=== PATIENT | female | born 1990 | race Caucasian/White ===

== ENCOUNTER 2024-07-01 21:38 | Inpatient (IN) | payer MEDICAID, SELFPAY ==
[2024-07-01] VITALS (7 sets, daily range): BP systolic 173–224; BP diastolic 98–148; PULSE 88–113; RESP 18–26; TEMP 36.7–36.8; O2SAT 86–92; BMI 33.8
--- NOTE | 2024-07-01 22:08 | EKG12_ITS ---
Test Reason : SOB Blood Pressure : */* mmHG Vent. Rate : 90 BPM Atrial Rate : 90 BPM P-R Int : 128 ms QRS Dur : 96 ms QT Int : 414 ms P-R-T Axes : 61 2 96 degrees QTcB Int : 506 ms Normal sinus rhythm Possible Left atrial enlargement Left ventricular hypertrophy with repolarization abnormality ( Sokolow-Avila , Luis product ) Abnormal ECG Confirmed by ZACH GAMA, DOMENICO ([id number]), news editor ORTEGA SANCHEZ ([id number]) on 07/08/2024 12:39:17 PM Referred By: SAMANTHA Confirmed By: DOMENICO SERRANO MD
[2024-07-01] MEDS: 0.9% Normal Saline (1000mL) 1,000 ML 999 ML IV (22:17)
[2024-07-01] MEDS: Albuterol 2.5 MG/3 ML VIAL.NEB. INHALATION (22:18)
[2024-07-01] MEDS: Ipratropium/Albuterol Sulfate 3 ML AMPUL.NEB INHALATION (22:18)
--- NOTE | 2024-07-01 22:20 | ED.VIS.DYS ---
HPI History of Present Illness Chief Complaint: Shortness of Breath Narrative Narrative: Chief complaint and HPI: Shortness of breath and cold symptoms. 34-year-old female with past medical history of HTN and methamphetamine abuse presents for evaluation of shortness of breath and cold symptoms. Patient states that she has been sober for approximately 30 days. She states that she recently started paying more attention to her health in which she has noticed that her blood pressure has been high over the past several weeks. She states that she was recently admitted to [facility] for hypertension and pneumonia. States she was treated with antibiotics. Patient states that her symptoms improved however the past week she has developed nasal congestion and productive cough. She states that [facility] today and her blood pressure was high. They are currently trying to adjust her medication. She states she was started on a Z-Donavon today. She states this evening her shortness of breath increased with chest tightness which is why she presents. She denies any fever, chills, headache, abdominal pain, nausea, vomiting, diarrhea. Review of systems: See HPI Medications: As listed on the chart Allergies: As listed on the chart PFSH: Per chart Vital signs: As listed on the chart. Reviewed. Physical exam: Gen: A&O x3 Head: Normocephalic, atraumatic Eyes: No sclera icterus, conjunctiva clear, PERRL. EOMI ENT: Mildly dry mucous membranes, + nasal congestion Neck: Trachea midline, No JVD CV: Tachycardic, regular rhythm, no murmurs, no peripheral edema Resp: Lungs CTA BL with few scattered expiratory wheezing, tachypnea, on 2 L nasal cannula GI: Abd soft, non-distended, non-tender, no r/r/g Musc: Full ROM, no deformity Skin: Warm, dry Neuro: Alert, oriented, grossly intact, sensation intact Psych: Cooperative, appropriate mood and affect [facility] Medical History Smoker Methamphetamine use Hypertension Home Medications ?Medication ?Instructions ?Recorded ?Last Taken ?Type carvedilol 3 tab PO DAILY 07/01/24 Unknown History Allergy/AdvReac Type Severity Reaction Status Date / Time No Known Allergies Allergy Verified 07/01/24 21:39 Social History Smoking Status: Current every day smoker tobacco type: cigarettes EXAM Physical Exam Const Vital Signs: 07/01/24 21:40 07/01/24 21:40 07/01/24 21:42 Temperature 98.1 F 98.1 F Temperature Source Oral Oral Pulse Rate 113 H 109 H Respiratory Rate 26 H 24 H Respiratory Effort Respiratory Depth Respiratory Pattern Blood Pressure 224/148 H 224/148 H Blood Pressure Mean 173 173 Pulse Ox 86 91 90 Oxygen Delivery Method Room Air Nasal Cannula Nasal Cannula Oxygen Flow Rate (L/min) 2 2 07/01/24 21:42 07/01/24 22:18 07/01/24 22:35 Temperature Temperature Source Pulse Rate 88 Respiratory Rate 20 H Respiratory Effort Short of Breath Labored Accessory Muscle Use Respiratory Depth Shallow Respiratory Pattern Tachypnea Normal Blood Pressure Blood Pressure Mean Pulse Ox 90 Oxygen Delivery Method Nasal Cannula Room Air Oxygen Flow Rate (L/min) 2 07/01/24 22:55 07/01/24 23:15 Temperature 98.3 F Temperature Source Oral Pulse Rate 94 Respiratory Rate 18 Respiratory Effort Respiratory Depth Respiratory Pattern Blood Pressure 207/139 H 173/98 H Blood Pressure Mean 161 123 Pulse Ox 91 Oxygen Delivery Method Room Air Oxygen Flow Rate (L/min) MDM MDM MDM Narrative Medical decision making narrative: 34-year-old female with past medical history of HTN and methamphetamine abuse presents for evaluation of shortness of breath and cold symptoms. Associated symptom is uncontrolled hypertension. Patient started on a Z-Donavon today by PCP. On presentation, patient is hypertensive, tachycardic, tachypneic. On presentation and prior to me assessing the patient, patient was hypoxic on room air requiring nasal cannula. In the room she is 96-98% on 2 L. Will trial her off oxygen to assess if hypoxia was accurate. Differential diagnosis includes but not limited to COVID, influenza, pneumonia, hypertension urgency, hypertensive emergency, suspect less likely ACS or PE however in the differential. NS bolus, labetalol, breathing treatments ordered for symptoms. Respiratory/cardiac workup ordered. On reevaluation after breathing treatments, patient's shortness of breath and tachypnea has improved. She has remained on room air without hypoxia. She did ambulate with a pulse ox without hypoxia as well. Her SBP is still in the 200s despite 20 mg IV labetalol therefore 20 mg IV hydralazine ordered. Patient's blood pressure improved to 173/98. Will not drop blood pressure further. CBC with leukocytosis at 15.4. Patient has anemia with hemoglobin 11.7. BMP shows BUN of 36 and creatinine of 2.39. Her troponin is 45. Her BNP is 48,913. I do not have previous laboratory results in my computer therefore patient was clinic synced. She was actually seen at [facility], not at [facility]. She was admitted for hypertension and JACKIE secondary to renal hypoperfusion. The note from 06/08 shows that the patient was stable to discharge with a creatinine of 2.79 and a BUN of 39. The note stated that the patient may not have full resolution of her kidney function until 90 days. She is supposed to be on Procardia XL 60 mg daily, Coreg 37.5 mg twice daily, Indur 15 mg, hydralazine 75 mg 3 times daily. Patient currently only is on the Coreg she states that the pharmacy did not have the other medications. This is likely secondary to why her hypertension is uncontrolled. On chart review her BNP is up from [facility] Discharge from 06/08 at [id number]. There was not a previous troponin to compare to. Concern is for hypertension emergency. Her D-dimer is elevated at 2.44. However given her renal insufficiency, I am able to give contrast to perform CTA chest to assess for PE. Patient will likely need a talk V/Q study. COVID, flu, RSV negative. Patient will warrant admission. I spoke with Dr. Gaxiola, she accepted admission. EKG: Interpreted by me/EM physician: EKG shows normal sinus rhythm. Left ventricular hypertrophy. Heart rate 90. No acute ischemic changes Diagnostic: Interpreted by me/EM physician: Chest x-ray without consolidation, effusion, pneumothorax. Patient has cardiomegaly. She has interstitial increased markings, concern for viral pathology. Impression: 1. Hypertension emergency 2. Viral syndrome 3. Elevated BNP, concern for heart failure 4. Elevated D-dimer, concern for PE 5. Renal insufficiency with recent JACKIE Lab Data Labs: Laboratory Results - last 24 hr 07/01/24 22:17 WBC 15.4 H RBC 3.96 L Hgb 11.1 L Hct 33.2 L MCV 83.8 MCH 28.0 MCHC 33.4 RDW Std Deviation 43.6 RDW Coeff of Rae 14.4 Plt Count 349 MPV 10.4 Immature Gran % (Auto) 0.600 Neut % (Auto) 75.1 H Lymph % (Auto) 18.6 L [place] % (Auto) 3.7 Eos % (Auto) 1.4 Baso % (Auto) 0.6 Absolute Neuts (auto) 11.5 H Absolute Lymphs (auto) 2.86 Nucleated RBC % 0 D-Dimer Quant (PE/DVT) 2.44 H* Sodium 137 Potassium 3.4 Chloride 101 Carbon Dioxide 20.3 L Anion Gap 15 BUN 36 H Creatinine 2.39 H Estim Creat Clear Calc 30.49 L Est GFR (MDRD) Non-Af 26 L BUN/Creatinine Ratio 14.9 Glucose 122 H Lactic Acid 1.1 Calcium 8.9 Troponin T High Sens 45 [place] [address] H Radiography Diagnostic Testing: Clinical Impression(s) from Imaging Studies Chest X-Ray 07/01/24 22:40 IMPRESSION: Findings suggestive of viral infection. Reading Location: [facility] Discharge Plan Triage Chief Complaint: Shortness of Breath ED Provider: Favian Owusu Dx/Rx/DC Orders Prescriptions: No Action carvedilol [Coreg] 3 tab PO DAILY Primary Care Provider: Care Physician,No Primary Referrals: Care Physician,No Primary [Primary Care Provider] - Print Language: Niuean
[2024-07-01 22:36] LABS: Absolute Lymphocyte Count 2.86 X10^3/uL (0.83-4.51); Absolute Neutrophil Count 11.5 X10^3/uL (2.0-7.7); Basophil# 0.09 X10^3/uL; Basophil% 0.6 % (0-1); Eosinophil# 0.22 X10^3/uL; Eosinophils% 1.4 % (0-5); Hematocrit 33.2 % (37-47); Hemoglobin 11.1 g/dL (12.0-15.0); Lymphocyte # 2.86 X10^3/ul (0.83-4.51); Lymphocyte % 18.6 % (19-41); Mean Corp Hgb Conc 33.4 g/dL (32-36); Mean Corpuscular Volume 83.8 fL (81-99); Mean Platelet Vol. 10.4 fl (6.2-12.0); Monocyte# 0.57 X10^3/uL; Monocyte% 3.7 % (0-10); NRBC Flagged by Analyzer 0 % (0-5); Neutrophil # 11.54 X10^3/uL (2.7-7.7); Neutrophil % 75.1 % (47-70); Platelet Count 349 K/mm3 (150-450); RBC Distribution Width CV 14.4 % (11.6-14.6); RBC Distribution Width SD 43.6 fl (35.1-43.9); Red Blood Count 3.96 M/mm3 (4.2-5.4); White Blood Count 15.4 K/mm3 (4.4-11.0)
--- NOTE | 2024-07-01 22:40 | RAD_ITS ---
PROCEDURE: CHEST PA AND LATERAL 07/01/2024 REASON FOR EXAM: SHORTNESS OF BREATH TECHNIQUE: Frontal and lateral views of the chest. COMPARISON: None FINDINGS: Hardware: None Heart: Mild cardiomegaly. Mediastinum: The mediastinal contour is unremarkable. Lungs: Bilateral interstitial thickening in the mid to lower lung zones. No pneumothorax. No pleural effusion. Bones: The bones are unremarkable. RAD/Chest PA and Lateral IMPRESSION: Findings suggestive of viral infection. Reading [facility]
[2024-07-01] MEDS: hydrALAZINE 20 MG/ML Vial IV (22:54)
[2024-07-01 22:58] LABS: Anion Gap 15 (5-15); BUN 36 mg/dL (4-19); BUN/Creat Ratio 14.9 RATIO (10-20); Calcium,Total 8.9 mg/dL (7.6-11.0); Carbon Dioxide 20.3 mmol/L (21.0-32.0); Chloride 101 mmol/L (98-108); Creatinine, Serum 2.39 mg/dL (0.70-1.20); EST Glomerular Filtration Rate 26 (>60); Estimated Creatinine Clearance 30.49 ml/min (50-250); Glucose 122 mg/dL (70-99); Lactic Acid 1.1 mmol/L (0.0-2.0); Potassium 3.4 mmol/L (3.3-5.1); Sodium Level 137 mmol/L (133-145)
[2024-07-01 23:13] LABS: Troponin T High Sensitivity 45 ng/L (<=14)
[2024-07-01 23:21] LABS: D-Dimer Quantitative (DVT/PE) 2.44 FEU/ug/m (0.27-0.49)
[2024-07-01 23:24] LABS: Pro- Brain NATRIURETIC PEPTIDE 48913 pg/mL (<=450)
--- NOTE | 2024-07-01 23:52 | PCM.HP.STD ---
HPI - General General Date of Admission: 07/01/24 Date of Service: 07/01/24 Chief Complaint: Dyspnea, cough, URI sxs, worsening. HPI Narrative The patient is a 34 y/o F w/ PMHx: HTN, Tobacco use, Polysubstance abuse (methamphetamine reporting that she has been clean x 30 days) who [facility] with history of URI type symptoms with significant congestion, rhinorrhea, dyspnea, productive cough with yellow/green sputum, congestion with reported clean status for approximately 30 days recently noting more issues with her blood pressure which been high over the last several weeks with recent [facility] admission with noted pneumonia at that time and elevated blood pressures treated with IV antibiotics with clinical improvement of her symptoms however the last week she developed nasal congestion, productive cough which then progressed to dyspnea and has been worsening with evaluation in the valve clinic on day of presentation with Z-Donavon initiation however given ongoing worsening symptoms and now onset of chest tightness prompted ED evaluation to be cautious. She denies any associated fevers or chills with her current presentation. Workup in the ED included T98.1, heart rate 113, BP initially 224/148, respiratory rate 26, 86% on room air with transient improvement to 91% on 2 L nasal cannula with most recent repeat vitals T98.3, heart rate 94, BP 173/98, respiratory rate 18, 91% on room air, CBC with WBC 15.4, hemoglobin 0.1, MCV 83.8, platelets 349 with left shift, D-dimer 2.44, BMP with carbon oxide 20.3, BUN/creatinine 36/2.39, GFR 26, glucose 122, lactic acid 1.1, initial troponin 45, NT proBNP 42166, chest x-ray with bilateral interstitial thickening in the mid to lower lung zones, rapid SARS COVID/influenza/RSV PCR negative, EKG with SR without acute evidence of ischemia. In the ED patient is started 1 L normal saline, DuoNeb and albuterol therapies, hydralazine 20 mg IV x 1, labetalol 20 mg IV x 1. [facility] Medical History Obesity Polysubstance abuse Tobacco use Methamphetamine use Hypertension Home Medications ?Medication ?Instructions ?Recorded ?Last Taken ?Type carvedilol 3 tab PO DAILY 07/01/24 Unknown History Allergy/AdvReac Type Severity Reaction Status Date / Time No Known Allergies Allergy Verified 07/01/24 21:39 Family History (Updated 07/02/24 @ 00:[address] Mei Castro MD) Mother Diabetes Hypertension Father Diabetes Hypertension Surgical History H/O wisdom tooth extraction Social History (Updated 07/02/24 @ 00:[address] Mei Castro MD) household members: other details: Currently living at [facility]. Smoking Status: Current every day smoker tobacco type: cigarettes Smoking packs per day: 0.5 Smoking cigarettes per day: 10.0 alcohol intake: never substance use type: former substance user Date of last use: Primarily reporting history methamphetamine usage. ROS ROS Narrative Admission Review of Systems: CONSTITUTIONAL: No weight loss, fever, + chills, weakness or fatigue. HEENT: + Congestion, rhinorrhea. Eyes: No visual loss, blurred vision, double vision or yellow sclerae. Ears, Nose, Throat: No hearing loss, sneezing, sore throat. SKIN: No rash or itching, lesions, wounds. CARDIOVASCULAR: + Chest tightness. No palpitations, edema, orthopnea, syncopal events. RESPIRATORY: + Dyspnea, productive cough.no reported wheezing, hemoptysis. GASTROINTESTINAL: + Decreased appetite. No nausea, vomiting or diarrhea, abdominal pain, melena, BRBPR. GENITOURINARY: No dysuria, frequency, urgency or retention. NEUROLOGICAL: No headache, dizziness, syncope, paralysis, ataxia, numbness or tingling in the extremities, focal weakness, change in bowel or bladder control, seizure. MUSCULOSKELETAL: + muscle, back pain, joint pain or stiffness. HEMATOLOGIC: No anemia, bleeding or bruising. LYMPHATICS: No enlarged nodes. No history of splenectomy. PSYCHIATRIC: + Suspect likely history of anxiety and depression ENDOCRINOLOGIC: No reports of sweating, cold or heat intolerance. No polyuria or polydipsia. ALLERGIES: No history of asthma, hives, eczema or rhinitis. Vital Signs Vital Signs Vital Signs: 07/01/24 21:40 07/01/24 21:40 07/01/24 21:42 Temperature 98.1 F 98.1 F Temperature Source Oral Oral Pulse Rate 113 H 109 H Respiratory Rate 26 H 24 H Respiratory Effort Respiratory Depth Respiratory Pattern Blood Pressure 224/148 H 224/148 H Blood Pressure Mean 173 173 Pulse Ox 86 91 90 Oxygen Delivery Method Room Air Nasal Cannula Nasal Cannula Oxygen Flow Rate (L/min) 2 2 07/01/24 21:42 07/01/24 22:18 07/01/24 22:35 Temperature Temperature Source Pulse Rate 88 Respiratory Rate 20 H Respiratory Effort Short of Breath Labored Accessory Muscle Use Respiratory Depth Shallow Respiratory Pattern Tachypnea Normal Blood Pressure Blood Pressure Mean Pulse Ox 90 Oxygen Delivery Method Nasal Cannula Room Air Oxygen Flow Rate (L/min) 2 07/01/24 22:55 07/01/24 23:15 Temperature 98.3 F Temperature Source Oral Pulse Rate 94 Respiratory Rate 18 Respiratory Effort Respiratory Depth Respiratory Pattern Blood Pressure 207/139 H 173/98 H Blood Pressure Mean 161 123 Pulse Ox 91 Oxygen Delivery Method Room Air Oxygen Flow Rate (L/min) Weight Weight: 173 lb 8.061 oz Body Mass Index (BMI) 33.8 Physical Exam Narrative Physical Examination: General: Awake, alert, oriented x 3 and cooperative, lying in the ED bed, fatigued and ill-appearing. Skin: Normal color, normal turgor, no icterus, no cyanosis except occasional stage ecchymoses, abrasion. HEENT: AT/NC, EOMI, PERRLA, mildly dry MM, no carotid bruits or JVD noted. Lungs: Diminished, greater bases, frequent coughing fits during evaluation, difficulty with deep inspiration secondary to coughing elicited, reports chest tightness especially with coughing fits, no markedly appreciated rales, ronchi or wheezing. Heart: Mildly tachycardic with regular rhythm; no gallop, rub audible. Abdomen: Soft, obese, NTTP, ND, normal BS, no H appreciated SM. Extremities: No cyanosis, clubbing, or edema, no calf tenderness with palpation. Neurological: Patient awake, alert, oriented as noted, cognitive function intact; pupils equally reactive to light and accommodation, cranial nerves grossly normal, moving all 4 extremities, no focal deficits, strength moderately to severely globally decreased secondary to acute presentation Psychiatric: Affect appears fatigued, ill-appearing, no acute evidence of depressive or anxiety feelings but suspect likely underlying history. Results Lab / Micro Data 07/01/24 22:17 07/01/24 22:17 Labs: Laboratory Results - last 24 hr 07/01/24 22:17: WBC 15.4 H, RBC 3.96 L, Hgb 11.1 L, Hct 33.2 L, MCV 83.8, MCH 28.0, MCHC 33.4, RDW Std Deviation 43.6, RDW Coeff of Rae 14.4, Plt Count 349, MPV 10.4, Immature Gran % (Auto) 0.600, Neut % (Auto) 75.1 H, Lymph % (Auto) 18.6 L, [place] % (Auto) 3.7, Eos % (Auto) 1.4, Baso % (Auto) 0.6, Absolute Neuts (auto) 11.5 H, Absolute Lymphs (auto) 2.86, Nucleated RBC % 0, D-Dimer Quant (PE/DVT) 2.44 H*, Sodium 137, Potassium 3.4, Chloride 101, Carbon Dioxide 20.3 L, Anion Gap 15, BUN 36 H, Creatinine 2.39 H, Estim Creat Clear Calc 30.49 L, Est GFR (MDRD) Non-Af 26 L, BUN/Creatinine Ratio 14.9, Glucose 122 H, Lactic Acid 1.1, Calcium 8.9, Troponin T High Sens 45 H, [place] [address] H Micro: Microbiology 07/01/24 22:19 Mucosa - Nose SARS-CoV-2, Influenza & RSV (PCR) - Final Imaging Radiology Impression Chest X-Ray 07/01/24 22:40 IMPRESSION: Findings suggestive of viral infection. [facility] Assessment & Plan Assessment/Plan (1) Pneumonia: PLAN: Plan The patient is a 34 y/o F w/ PMHx: HTN, Tobacco use, Polysubstance abuse (methamphetamine) who [facility] with history of URI type symptoms with significant dyspnea, cough, congestion with reported clean status for approximately 30 days recently noting more issues with her blood pressure which been high over the last several weeks with recent [facility] admission with noted pneumonia at that time and elevated blood pressures treated with IV antibiotics with clinical improvement of her symptoms however the last week she developed nasal congestion, productive cough which then progressed to dyspnea and has been worsening with evaluation in the valve clinic on day of presentation with Z-Donavon initiation however given ongoing worsening symptoms and now onset of chest tightness prompted ED evaluation to be cautious. #1. Acute Hypoxia secondary to Acute Bilateral Pneumonia, Possible Viral etiology but unable to rule out bacterial etiology confounded by potentially #2: Will admit to PCU in case of also underlying VTE/PE that have not been diagnosed, maintain on oxygen with wean as tolerated to room air, continue ATC duonebs, PRN albuterol, maintained on IV Zosyn and Vancomycin given recent hospitalization and pneumonia as well as drug use history with MRSA screen requested, HOB, IS parameters w/ pending sputum cultures, full respiratory viral panel, procalcitonin and urine antigens. Records from recent admission at [facility] have been requested. Certainly may de-escalate antibiotic therapies if more indicative of viral etiology. Blood culture x 2 also requested. #2. Elevated D-dimer with inability to immediately obtain CTPA secondary to renal function: Notably elevated D-dimer, given presentation certainly concern for possible PE, will initiate heparin drip until VQ scan can be obtained however if unable to be obtained we will also place duplex ultrasound just in case, continue to hydrate. #3. Indeterminate cardiac enzyme: EKG in ED sinus rhythm with no acute evidence of ischemia, CXR w/ bilateral interstitial thickening in the mid to lower lung zones, initial trop 45. Will maintain on a monitored bed to assure no acute myocardial infarction with serial cardiac enzymes and EKGs. Magnesium level requested. Echocardiogram requested. Given current presentation unable to obtain CTPA but will continue anticoagulant therapy with heparin drip pending VQ scan. Will request bilateral lower extremity duplex ultrasound at this time which may be obtained if unable to get the VQ scan in a timely fashion. Will maintain on aspirin therapy. #4. Presumed Acute kidney injury: Secondary to acute presentation #1. Admission BUN/Cr 36/2.39, GFR 26, prior baseline creatinine unknown but presume this is acute. Will continue to hydrate, hold nephrotoxic medications and repeat chemistry in AM. UA requested. Will obtain renal ultrasound as well as FeNa assessment. If labs not improving low threshold to involve nephrology. Records from [facility] requested. #5. Hypertensive emergency: Patient with uncontrolled blood pressure and per reports she supposed to be on several medications including Procardia XL 60 mg daily, Coreg 37.5 mg twice daily, Indur 15 mg, hydralazine 75 mg 3 times daily but is reportedly only been taking the Coreg because she was not able to get the other medications from the pharmacy, will initiate these medications and continue to closely monitor, continue to cycle cardiac enzymes as noted as initial is indeterminate, echocardiogram is also been requested, records from [facility] have been requested also. #6. Normocytic anemia, unclear chronicity: Admission hemoglobin 11.1, MCV 83.8, no comparison labs, will obtain iron panel, ferritin, guaiac, vitamin B12 and folic acid level to be cautious. Records from [facility] have been requested. #7. Polysubstance abuse: Noted usage of at least methamphetamine, UDS is requested, will request HIV, hepatitis as well as syphilis testing as well, case management/social work consulted, encourage clean status. #8. Tobacco Abuse: Encouraged cessation, inpatient consultation per RT, NR if desired. #9. Obesity: Weight loss and lifestyle changes encouraged. #10. DVT prophylaxis: Will continue heparin drip as noted. Charges/Coding Visit Charges Inpatient E&M: 67751 Init Hosp L3
[2024-07-02] VITALS (11 sets, daily range): BP systolic 113–191; BP diastolic 74–119; PULSE 82–110; RESP 16–22; TEMP 36.7–37.2; O2SAT 92–98; BMI 33.3
--- NOTE | 2024-07-02 | VDLE_ITS ---
Reason For Study Reason For Study: Elevated D-dimer RIGHT LEFT GSV is normal. GSV is normal. CFV is compressible, spontaneous, phasic, competent CFV is compressible, spontaneous, phasic, competent, and demonstrates normal augmentation. and demonstrates normal augmentation. FV is compressible, spontaneous, phasic, competent FV is compressible, spontaneous, phasic, competent and demonstrates normal augmentation. and demonstrates normal augmentation. POP V is compressible, spontaneous, phasic, competent POP V is compressible, spontaneous, phasic, competent and demonstrates normal augmentation. and demonstrates normal augmentation. T/P Trunk is compressible. T/P Trunk is compressible. PTV is compressible. PTV is compressible. RT PerV is compressible. LT PerV is compressible. Procedure This is a venous duplex using B-mode, color flow and spectral Doppler. Exam performed in department. A preliminary report was called and/or faxed to Phyllis GUZMÁN. VL/Venous Duplex US - Reilly Extrem Interpretation Summary Deep veins of the lower extremities are bilaterally patent and compressible seg mentally. There is no evidence of deep vein thrombosis on either side. Valvular competence appears intact within the p roximal deep venous systems bilaterally. The great saphenous veins appear bilaterally patent and compressible segmentall y. Ordering Physician: Mei Castro Performed By: Irina Chong RVT
[2024-07-02] MEDS: Acetaminophen 500 MG Tablet 1000 MG PO (00:11)
[2024-07-02 00:27] LABS: Prothrombin Time (Protime)PT. 13.3 SECONDS (11.7-14.9)
[2024-07-02 00:28] LABS: Partial Thromboplast Time 31.8 Seconds (24.1-36.2)
[2024-07-02 00:32] LABS: Magnesium 2.2 mg/dL (1.5-2.2); Phosphorus 4.5 mg/dL (2.7-4.5)
--- NOTE | 2024-07-02 00:33 | ECHOD_ITS ---
Reason For Study Reason For Study: INDETER TROP Procedure This was a 2D Doppler, Color Flow transthoracic echocardiogram. Exam performed in department. Left Ventricle Moderately dilated left ventricle. The estimated ejection fraction is 45-50 %. Atria The left atrium is mildly enlarged. Normal right atrium. Mitral Valve The mitral valve is structurally normal. No prolapse or stenosis seen. Trivial mitral valve insufficiency. Tricuspid Valve Normal tricuspid valve. Trivial tricuspid valve insufficiency. Aortic Valve Trisinus/trileaflet aortic valve. Pulmonic Valve The pulmonic valve is not well visualized. Great Vessels Normal aortic root. Pericardium/Pleural No pericardial effusion. MMode/2D Measurements & Calculations LVIDd: 5.3 cm IVSd: 1.7 cm LVOT diam: 2.0 cm LVIDs: 4.3 cm LVPWd: 1.7 cm LVOT area: 3.2 cm2 FS: 18.4 % Ao root diam: 3.2 cm LAV(MOD-bp): 63.9 ml LVAd ap4: 34.2 cm2 LAV(MOD-bp) Indexed: 36.7 ml/m2 LVLd ap4: 8.2 cm LAV(MOD-sp2): 67.2 ml EDV(MOD-sp4): 118.7 ml LAV(MOD-sp4): 59.2 ml EDV(sp4-el): 120.1 ml LVAs ap4: 22.5 cm2 LVLs ap4: 7.0 cm ESV(MOD-sp4): 61.7 ml ESV(sp4-el): 61.9 ml EF(MOD-sp4): 48.0 % EF(sp4-el): 48.5 % SV(MOD-sp4): 57.0 ml SV(sp4-el): 58.2 ml LA A4 area: 20.3 cm2 SI(MOD-sp4): 32.7 ml/m2 LA dimension(2D): 4.3 cm RA A4 area: 13.1 cm2 Time Measurements MV dec time: 0.08 sec Doppler Measurements & Calculations MV E max fritz: 138.3 cm/sec Lat Peak E' Fritz: 7.4 cm/sec Med Peak E' Fritz: 6.6 cm/sec MV A max fritz: 116.0 cm/sec E/E' lat: 18.6 E/E' med: 21.1 MV E/A: 1.2 Ao V2 max: 161.3 cm/sec LV V1 max: 154.2 cm/sec MV dec slope: 1729 cm/sec2 Ao max P.4 mmHg LV V1 max P.5 mmHg Ao V2 mean: 113.5 cm/sec LV V1 mean P.9 mmHg Ao mean P.8 mmHg LV V1 mean: 116.4 cm/sec Ao V2 VTI: 25.4 cm LV V1 VTI: 24.3 cm AV (velocity ratio): 0.96 CLEVE(I,D): 3.1 cm2 CLEVE(V,D): 3.1 cm2 SV(LVOT): 77.8 ml PA V2 max: 101.6 cm/sec PA V2 mean: 70.6 cm/sec ECHO/Echo Complete Interpretation Summary Mildly dilated LV systolic The estimated ejection fraction is 45-50 %. Mild LV systolic dysfunction with mild global LV hypokinesia Ordering Physician: Mei Castro Referring Physician: FLORENCE PCP Performed By: Sravani Nascimento RCS
[2024-07-02 01:01] LABS: Troponin T High Sens 2 HR 52 ng/L (<=14)
[2024-07-02] MEDS: 0.9% Normal Saline (1000mL) 1,000 ML 100 ML IV (01:18)
[2024-07-02 01:26] LABS: Ferritin 135 ng/mL (22-378)
[2024-07-02] MEDS: NIFEdipine 60 MG Tablet PO ×2 (01:29→11:18)
[2024-07-02] MEDS: hydrALAZINE 50 MG Tablet 75 MG PO ×4 (01:29→22:12)
[2024-07-02] MEDS: HEPARIN/D5w 25,000 UNITS 25,000 UNITS/250 ML IV.SOLN. 11 UNITS CONT INF (01:35)
[2024-07-02] MEDS: Heparin Injection (Vial) 5,000 UNIT/ML VIAL 5000 UNIT IV (01:37)
[2024-07-02 01:52] LABS: Internal QC Validated? YES +Cl - CLEAR BKGD; Pregnancy, Serum, hCG Quali. NEGATIVE Negative
[2024-07-02] MEDS: Piperacil/Tazobactam 3.375 GM/50 ML ML IV ×2 (02:00→05:36)
[2024-07-02 02:12] LABS: HIV Nonreactive (Nonreactive); Hepatitis B Surface Antigen Nonreactive (Nonreactive); Hepatitis C Antibody Nonreactive (Nonreactive); Procalcitonin 0.09 ng/mL (<=0.10); Syphilis Antibodies Nonreactive (Nonreactive)
[2024-07-02 02:13] LABS: Hepatitis B Surface Antibody REAC
[2024-07-02 02:44] LABS: Absolute Lymphocyte Count 1.74 X10^3/uL (0.83-4.51); Absolute Neutrophil Count 12.7 X10^3/uL (2.0-7.7); Basophil# 0.08 X10^3/uL; Basophil% 0.5 % (0-1); Eosinophils% 0.6 % (0-5); Hematocrit 30.5 % (37-47); Lymphocyte # 1.74 X10^3/ul (0.83-4.51); Lymphocyte % 11.2 % (19-41); Mean Corp Hgb Conc 32.8 g/dL (32-36); Mean Corpuscular Hgb 27.5 pg (27.0-32.0); Mean Platelet Vol. 10.1 fl (6.2-12.0); Monocyte# 0.77 X10^3/uL; NRBC Flagged by Analyzer 0 % (0-5); Neutrophil # 12.74 X10^3/uL (2.7-7.7); Neutrophil % 82.1 % (47-70); Platelet Count 282 K/mm3 (150-450); RBC Distribution Width CV 14.4 % (11.6-14.6); RBC Distribution Width SD 43.8 fl (35.1-43.9); Red Blood Count 3.63 M/mm3 (4.2-5.4); White Blood Count 15.5 K/mm3 (4.4-11.0)
[2024-07-02] MEDS: Vancomycin HCl 2,000 MG in 0.9% Normal Saline (500mL Bag) 500 ML 250 MG IV (02:57)
[2024-07-02 03:17] LABS: ALB/GLOB Ratio 1.1 RATIO (0.9-2.4); AST(SGOT) 18 U/L (<=31); Alanine Aminotransfer ALT/SGPT 9 U/L (<=34); Albumin, Serum 3.4 g/dL (3.5-5.0); Alkaline Phosphatase 100 U/L (35-104); Anion Gap 14 (5-15); BUN 32 mg/dL (4-19); BUN/Creat Ratio 13.8 RATIO (10-20); Calcium,Total 8.5 mg/dL (7.6-11.0); Carbon Dioxide 18.1 mmol/L (21.0-32.0); Chloride 104 mmol/L (98-108); Creatinine, Serum 2.29 mg/dL (0.70-1.20); EST Glomerular Filtration Rate 28 (>60); Estimated Creatinine Clearance 31.54 ml/min (50-250); Globulin 3.1 g/dL (2.2-4.2); Glucose 130 mg/dL (70-99); Iron 26 ug/dL (50-170); Iron Binding Capacity,Unsat 192 ug/dL (228-428); Potassium 3.2 mmol/L (3.3-5.1); Protein, Total 6.5 g/dL (5.9-8.4); Sodium Level 136 mmol/L (133-145); Total Bilirubin 0.31 mg/dL (0.00-1.30); Vitamin B12 344 pg/mL (180-914)
--- NOTE | 2024-07-02 03:20 | PCM.RX.CS ---
Consult Antibiotic Management Pharmacy has been consulted to manage selected antibiotic: Vancomycin Type of Intervention Type of Consult: Suspected Infection Suspected Infection: Pneumonia Labs Labs: Sodium 136 mmol/L (133-145) 07/02/24 02:35 Potassium 3.2 mmol/L (3.3-5.1) L 07/02/24 02:35 Chloride 104 mmol/L (98-108) 07/02/24 02:35 Carbon Dioxide 18.1 mmol/L (21.0-32.0) L 07/02/24 02:35 Anion Gap 14 (5-15) 07/02/24 02:35 BUN 32 mg/dL (4-19) H 07/02/24 02:35 Creatinine 2.29 mg/dL (0.70-1.20) H 07/02/24 02:35 Est GFR (MDRD) Non-Af 28 (>60) L 07/02/24 02:35 BUN/Creatinine Ratio 13.8 RATIO (10-20) 07/02/24 02:35 Glucose 130 mg/dL (70-99) H 07/02/24 02:35 Microbiology Microbiology: Microbiology 07/01/24 22:19 Mucosa - Nose SARS-CoV-2, Influenza & RSV (PCR) - Final Goal Trough Goal Trough: 15-20 mcg/mL Pharmacy Plan for Drug Dosing Pharmacy Plan for Drug Dosing: IV VANCOMYCIN Consulting Physician: Dr. Castro Indication: Pneumonia Goal Trough: 15-20 SrCr: 2.29 CrCl: 31 mL/min Comments: Patient had loading dose of 2000mg IV x1 ordered and administered 07/02 @0257 Vancomycin Dose: 1000mg IV Q24hr to start 07/03/24 @0300 Pending Level: 07/04/24 @0230, prior to 3rd total dose per protocol Pharmacy Service will continue to monitor and adjust dosing as required.
[2024-07-02 03:37] LABS: Troponin T High Sens 4 HR 51 ng/L (<=14)
--- NOTE | 2024-07-02 05:55 | NM_ITS ---
PROCEDURE: LUNG SCAN VENT/PERF REASON FOR EXAM: ELEVATED DIMER, HIGH RISK PE TECHNIQUE: Nuclear medicine V/Q scan using 5.3 mCi Tc-99m MAA intravenously for perfusion imaging and 52.0 mCi Tc-99m DTPA aerosol for ventilation imaging. Anterior, posterior, right and left lateral, SCOTT, BHUTANESE, RPO, and LPO ventilation and perfusion images. COMPARISON: Chest radiograph 07/01/2024. FINDINGS: Ventilation images: Normal radiotracer uptake throughout the bilateral lungs, with normal gradient. Mild cardiomegaly. Normal physiologic clumping of the radiotracer seen within the central airways. Perfusion images: No segmental or subsegmental unmatched perfusion defect within the bilateral lungs. Normal radiotracer uptake seen within the gallbladder. NM/Lung Scan Vent/Perf IMPRESSION: LOW PROBABILITY OF ACUTE PULMONARY EMBOLISM. Mild cardiomegaly. Reading Location: [id number]
[2024-07-02] MEDS: Ipratropium/Albuterol Sulfate 3 ML AMPUL.NEB INHALATION ×2 (07:01→15:35)
[2024-07-02 07:39] LABS: Partial Thromboplast Time 59.8 Seconds (24.1-36.2)
--- NOTE | 2024-07-02 08:23 | RDU_ITS ---
Reason For Study Reason For Study: JACKIE / HTN Right Renal Artery Left Renal Artery Right renal artery ostium 116.3/12.7 Left renal artery ostium 64.3/15.0 RSV/EDV. PSV/EDV. Right renal artery proximal 77.2/13.4 Left renal artery proximal PSV/EDV PSV/EDV. 86.2/15.0 . Right renal artery mid 79.2/17.2 PSV/EDV. Left renal artery mid 85.6/17.0 PSV/EDV . Right renal artery distal 75.3/13.4 Left renal artery distal 108.0/13.6 PSV/EDV. PSV/EDV. Right RAR 1.28. Left RAR 1.2. Right Renal Parenchyma Left Renal Parenchyma Upper Pole Medula 16.0/4.5 PSV/EDV. Left upper pole medulla 11.7/1.8 Right upper pole medulla EDR 0.30 . PSV/EDV . Right upper pole medulla R.I. 0.72 . Left upper pole medulla EDR 0.20 . Upper Franco Cortx 17.1/4.0 PSV/EDV. Left upper pole medulla R.I. 0.85 . Right upper pole cortex EDR 0.20 . UP Cortex 8.4/4.5 PSV/EDV. Right upper pole cortex R.I. 0.77 . Left upper pole cortex EDR 0.50 . Right lower Pole medulla 22.1/5.6 Left upper pole cortex R.I. 0.46 . PSV/EDV . Left lower Pole medulla 17.1/4.5 Right lower pole medulla EDR 0.30 . PSV/EDV . Right lower pole medulla R.I. 0.75 . Left lower pole medulla EDR 0.30 . Lower Pole Cortex 9.4/4.0 PSV/EDV. Left lower pole medulla R.I. 0.74 . Right lower pole cortex EDR 0.40 . Lower Pole Cortx 8.4/4.5 PSV/EDV. Right lower pole cortex R.I. 0.58 . Left lower pole cortex EDR 0.50 . Right Renal Hilar Left lower pole cortex R.I. 0.46 . Right Hilar avg 71.7/14.3 PSV/EDV. Left Renal Hilar Right hilar acceleration time 40 m/sec. LT Hilar avg 82.7/10.6 PSV/EDV . Right Renal Dimensions Left hilar acceleration time 20 m/sec. Right kidney size 9.13 cm . Left Renal Dimensions Right cortical dimension 1.74 cm . Left kidney size 9.75 cm . Left cortical dimension 1.15 cm . Aorta Proximal abdominal aorta 2.07 x 2.04 cm . Proximal abdominal aorta peak systolic velocity is 90.8 cm/sec . Distal abdominal aorta 1.72 x 1.53 cm . Distal abdominal aorta peak systolic velocity is 114.9 cm/sec . Procedures Renal Artery Ultrasound with B-Mode, Pulsed wave and Color Doppler. Technically Difficult study Patient scanned in PCU. VL/Renal Artery Duplex Ultrasound Interpretation Summary Right renal artery patent with normal velocities and no evidence of stenosis. Left renal artery patent with normal velocities and no evidence of stenosis. Right renal vein patent. Left renal vein patent. Right kidney normal in size. Left kidney normal in size. Ordering Physician: Jordi Benitez Referring Physician: N/A Performed By: Ignacio Oliveira RVT
--- NOTE | 2024-07-02 08:26 | US_ITS ---
PROCEDURE: KIDNEY AND BLADDER 07/02/2024 REASON FOR EXAM: JACKIE, R/O POSTOBSTRUCTIVE TECHNIQUE: Bilateral renal ultrasound. COMPARISON: None. FINDINGS: Kidneys: Normal renal sizes, parenchymal thicknesses, and echotextures. Tiny right nonobstructing renal calculi. [place]: No hydronephrosis. Cysts or Masses: No cysts or large solid renal masses. Other: The urinary bladder is mildly distended and unremarkable. RIGHT Kidney Size: 9.2 x 4.3 x 3.7 cm Volume: 76 mL Parenchymal Thickness: 14 mm (>14mm is normal) Cortical Thickness (if discernible): N/a (>6mm is normal) LEFT Kidney Size: 9.7 x 4.6 x 4.3 cm Volume: 99 mL Parenchymal Thickness: 12 mm (>14mm is normal) Cortical Thickness (if discernible): N/a (>6mm is normal) US/Kidney and Bladder IMPRESSION: Tiny nonobstructing right renal calculi. No hydronephrosis. Reading Location: [id number]
--- NOTE | 2024-07-02 09:00 | CASEMGMT ---
RN ROBERTO Face to Face with patient for initial transition planning/care coordination assessment. RN CM introduced self and role at [facility]. Patient lying in bed, alert and oriented. Patient willing to participate in assessment and is able to answer all questions appropriately. Care providers, pharmacy, and demographics verified. Strata: 1 PCP: none, PCP list provided Specialists: none Preferred Pharmacy: [facility] Insurance: [employer] Prescription Benefit: yes Living Will/HPOA: none LNOK: significant other Living Arrangements: Patient is currently residing in [facility]. Patient is independent. Transportation: [facility] DME/HHC: Patient denies DME. No previous HHC or SNF. Will monitor for home oxygen, prefers [employer], green sheet on chart. Patient wishes to discharge home, denies need for home health at this time. Patient states she has no further needs or concerns at this time. CM to follow for discharge planning needs that may arise. Disposition Plan: Patient to discharge to [facility] with follow-up plans in place. Irina LARA, RN, CM
--- NOTE | 2024-07-02 10:44 | PN.HOSP_ITS ---
Reason for Visit Reason for Visit: Diagnoses Pneumonia, unspecified organism (07/01/24) Subjective Subjective Patient was down having imaging done this morning. Saw patient at bedside this afternoon. Patient was mildly fatigued appearing but otherwise laying back comfortably in bed, conversing normally and in no acute distress. Notably was found to be positive for influenza B and she was happy with this as it seems to explain her symptoms well. She continues to have a dry cough but states her shortness of breath today is improved from yesterday. Does feel fatigued with some myalgias, stable from previous days. No other new concerns today. Importantly, patient's records from recent hospitalization at [facility] were reviewed in [facility]. During that hospitalization patient was found to have significantly elevated creatinine and new onset HFrEF with EF 30 to 35%. Urine showed elevated protein to creatinine ratio concerning for some degree of chronic any disease. Creatinine was 2.7 on that discharge. She had significantly elevated pressures during that hospitalization and was started on a litany of blood pressure medications with improvement including Coreg, hydralazine, Imdur and nifedipine. She has a history of longstanding methamphetamine abuse. However, since that hospitalization she has been living at [facility] and has been sober now for over 30 days. She had been feeling well until a few days ago when she developed worsening shortness of breath and URI symptoms. Objective Data Objective Data Vital Signs: Vital Signs Temp Pulse Resp BP Pulse Ox O2 Del Method O2 Flow Rate 98.1 F 103 H 20 H 171/110 H 92 Room Air 2 07/02/24 05:40 07/02/24 07:03 07/02/24 07:03 07/02/24 05:40 07/02/24 07:03 07/02/24 08:29 07/01/24 21:42 Oxygen Flow Rate (L/min) 2 Oxygen Delivery Method Room Air Weight: 77.4 kg Body Mass Index (BMI) 33.3 Intake & Output: Intake and Output for Last 24 Hours 06/30/24 07/01/24 07/02/24 23:59 23:59 23:59 Intake Total 0 / 0 1889 Balance 0 / 0 1889 Lab / Micro Data 07/02/24 02:35 07/02/24 02:35 Labs: Laboratory Results - last 24 hr 07/01/24 22:17: WBC 15.4 H, RBC 3.96 L, Hgb 11.1 L, Hct 33.2 L, MCV 83.8, MCH 28.0, MCHC 33.4, RDW Std Deviation 43.6, RDW Coeff of Rae 14.4, Plt Count 349, MPV 10.4, Immature Gran % (Auto) 0.600, Neut % (Auto) 75.1 H, Lymph % (Auto) 18.6 L, Barrow % (Auto) 3.7, Eos % (Auto) 1.4, Baso % (Auto) 0.6, Absolute Neuts (auto) 11.5 H, Absolute Lymphs (auto) 2.86, Nucleated RBC % 0, PT 13.3, INR 1.0, APTT 31.8, D-Dimer Quant (PE/DVT) 2.44 H*, Sodium 137, Potassium 3.4, Chloride 101, Carbon Dioxide 20.3 L, Anion Gap 15, BUN 36 H, Creatinine 2.39 H, Estim Creat Clear Calc 30.49 L, Est GFR (MDRD) Non-Af 26 L, BUN/Creatinine Ratio 14.9, Glucose 122 H, Lactic Acid 1.1, Calcium 8.9, Phosphorus 4.5, Magnesium 2.2, T roponin T High Sens 45 H, [place] [address] H 07/02/24 00:17: Ferritin 135, Troponin T Hi Sens 2 Hr 52 H, Serum , Qual NEGATIVE 07/02/24 00:55: Procalcitonin 0.09, Syphilis Total Ab Nonreactive, Hep Bs Antigen Nonreactive, Hep Bs Antibody REAC, Hepatitis C Antibody Nonreactive, HIV 1&2 Antibody Nonreactive 07/02/24 02:35: WBC 15.5 H, RBC 3.63 L, Hgb 10.0 L, Hct 30.5 L, MCV 84.0, MCH 27.5, MCHC 32.8, RDW Std Deviation 43.8, RDW Coeff of Rae 14.4, Plt Count 282, MPV 10.1, Immature Gran % (Auto) 0.600, Neut % (Auto) 82.1 H, Lymph % (Auto) 11.2 L, Barrow % (Auto) 5.0, Eos % (Auto) 0.6, Baso % (Auto) 0.5, Absolute Neuts (auto) 12.7 H, Absolute Lymphs (auto) 1.74, Nucleated RBC % 0, Sodium 136, P otassium 3.2 L, Chloride 104, Carbon Dioxide 18.1 L, Anion Gap 14, BUN 32 H, C reatinine 2.29 H, Estim Creat Clear Calc 31.54 L, Est GFR (MDRD) Non-Af 28 L, BUN/Creatinine Ratio 13.8, Glucose 130 H, Calcium 8.5, Iron 26 L, Iron Saturation 12.0 L, Unsaturated IBC 192 L, Total Bilirubin 0.31, AST 18, ALT 9, Alkaline Phosphatase 100, Troponin T Hi Sens 4Hr 51 H, Total Protein 6.5, A lbumin 3.4 L, Globulin 3.1, Albumin/Globulin Ratio 1.1, Vitamin B12 344, Serum Folate 15.00, TSH 2.570 07/02/24 07:21: APTT 59.8 H Micro: Microbiology 07/02/24 05:45 Mucosa - Nasopharyngeal Respiratory Panel (PCR) - Final Influenzae B 07/02/24 05:45 Nasal Secretion MRSA (PCR) - Final 07/01/24 22:19 Mucosa - Nose SARS-CoV-2, Influenza & RSV (PCR) - Final Radiography Diagnostic Testing: Radiology Impression Chest X-Ray 07/01/24 22:40 IMPRESSION: Findings suggestive of viral infection. Reading Location[facility] Physical Exam Const alert, oriented x3 and no apparent distress Constitutional Narrative: Younger female, class I obesity, mildly fatigued appearing but otherwise laying back comfortably in bed, conversing normally, in no acute distress. General Appearance: cooperative and comfortable HEENT normocephalic, head/scalp atraumatic, hearing grossly normal bilaterally, nasal mucous membranes and turbinates normal and moist oral mucous membranes Eyes PERRL, EOMs intact bilaterally and conjunctivae normal Neck full ROM Chest inspection of chest normal Resp normal respiratory effort and no use of accessory muscles Resp Narrative: Breathing comfortably on room air at rest. Mildly decreased breath sounds in bilateral lung bases but no wheezing or crackles noted. Cardio no murmurs and peripheral pulses 2+ throughout Cardio Narrative: Tachycardic, regular rhythm. GI normal to inspection, nondistended, normoactive bowel sounds, soft to palpation, non-tender and non-distended Back/Spine normal ROM Extremity normal to inspection, full ROM and no pedal edema Skin no rashes or lesions noted Psych mental status grossly normal Assessment & Plan Assessment/Plan (1) Influenza B: PLAN: Plan Patient is a 34-year-old female who presented to [facility] ED on 07/01/2024 with shortness of breath and URI symptoms. 1. Influenza B infection with hypoxia, improving ? Presented with worsening shortness of breath and URI symptoms. Influenza B positive. Chest x-ray with bilateral interstitial thickening in mid to lower lung zones suggestive of viral infection. Requiring 2 L nasal cannula on admit to maintain appropriate oxygen saturations. Weaned to room air at rest by hospital day 2. There was initially concern for PE given elevated D-dimer and hypoxia but VQ scan was normal. Will treat with Tamiflu and other medications for symptomatic management for now. Monitor. 2. Poorly controlled hypertension ? BP high to the 200s over 130s in the ED. Given IV antihypertensive with improvement to the 170s over 90s but unable to improve further than that. Restarted new home medications of Coreg, Imdur, nifedipine and hydralazine with improvement to the 150s to 160s over 100s. Suspect worsened hypertension is primarily due to flu infection as well as underlying kidney disease. Renal duplex ultrasound ordered to evaluate renal arteries. Continue home medications and can consider increasing doses as needed for improved blood pressure control. 3. Suspected CKD stage IIIb ? Creatinine 2.39 on admit here. On review of outside records, creatinine was 2.7 on discharge from [facility] earlier this month. Had fairly elevated protein to creatinine ratio noted during that hospitalization. Renal ultrasound did show normal renal sizes with no parenchymal abnormalities. Appeared dry on this admission and was given 1 L of IV fluids, and creatinine remained stable. Continue to monitor BMP and urine output daily. No inpatient nephrology needs at this time but will need close outpatient follow-up. 4. Chronic HFrEF ? Diagnosed with new onset HFrEF during recent hospitalization at [facility]. Echo showed EF 30 to 35%. Unable to review those images. Repeat echo on this admission showed EF 40 to 45%, moderately dilated LV, no other abnormalities. BNP 76413, suspect this was primarily due to poorly controlled hypertension. Appeared dry on admit presumed due to flu infection and was given 1 L of IV fluids. Now appears euvolemic, no need for IV fluids or diuretics. Continue medication management as noted above. No inpatient cardiology needs, will need outpatient follow-up on discharge. 5. Mild normocytic anemia ? Hemoglobin 11.1 on admit, decreased to 10.0 on hospital day 2 after IV fluid resuscitation. Iron studies with mild iron deficiency noted, ferritin 135. Suspect multifactorial from iron deficiency and chronic kidney disease as noted above. Will start p.o. iron supplement. Monitor CBC daily. 6. Hyperlipidemia ? Lipid panel on admit with total cholesterol 261, LDL 213, HDL 30. Will start patient on high intensity atorvastatin at this time. Recommend repeat lipid panel in 8 to 12 weeks. 7. Polysubstance abuse ? Patient with history of methamphetamine abuse. Has reportedly now been sober for the last 30 days and living at [facility]. Urine drug screen ordered on admit for confirmation. Encouraged continued cessation. 8. Tobacco abuse ? Denied need for NRT while inpatient. Encouraged cessation. 9. Class I obesity ? BMI 33 on admit. Encouraged weight loss. DVT prophylaxis: Heparin subcu CODE STATUS: Full code, verified Expected disposition: Home, 1 to 2 days Total clinical time spent by myself addressing the patient's medical issues, reviewing all the data, and collaborating with patient's care team: 50 minutes. Charges/Coding Visit Charges Inpatient E&M: 46432 Subs Hosp L3
--- NOTE | 2024-07-02 10:45 | RAD_ITS ---
PROCEDURE: CHEST PA AND LATERAL 07/02/2024 REASON FOR EXAM: UPDATED CXR 6 HOURS WITHIN VQ SCAN TECHNIQUE: Frontal and lateral views of the chest. COMPARISON: 07/01/2024 FINDINGS: Hardware: None Heart: The heart size is normal. Mediastinum: The mediastinal contour is unremarkable. Lungs: Poor inspiration with some bibasilar atelectasis. Bones: The bones are unremarkable. RAD/Chest PA and Lateral IMPRESSION: Poor inspiration with some bibasilar atelectasis. Reading Location: [id number]
--- NOTE | 2024-07-02 10:52 | CASEMGMT ---
Social Work SW did check w/Sabrina from [facility], should pt need O2 she can return to [facility] w/O2. RICHARD Smith
[2024-07-02] MEDS: Carvedilol 25 MG Tablet 37.5 MG PO (11:18)
[2024-07-02] MEDS: Isosorbide Mononitrate 30 MG Tablet 15 MG PO (11:19)
[2024-07-02 12:11] LABS: Cholesterol 261 mg/dL (<=200); High Density Lipoprotein 30 mg/dL; Low Density Lipoprotein Calc. 213 mg/dL; Triglycerides 91 mg/dL; Very Low Density Lipoprotein 18 mg/dL (5-40); cholesterol:hdl ratio screen 8.67
[2024-07-02 12:16] LABS: Iron Binding Capacity,Total 218 ug/dL (250-450); PERCENT IRON SATURATION 11.9 % (13-59)
[2024-07-02] MEDS: Potassium Chloride Oral Tablet 20 MEQ 40 MEQ PO (14:53)
[2024-07-02] MEDS: Oseltamivir Phosphate 30 MG Capsule PO (14:54)
[2024-07-02] MEDS: Atorvastatin Calcium 80 MG Tablet PO (22:13)
[2024-07-02 23:07] LABS: Amphetamine Urine NEGATIVE (<1000 ng/mL); Barbiturate Urine NEGATIVE (< 200 ng/mL); Benzodiazepine Urine NEGATIVE (< 200 ng/mL); Buprenorphine Urine NEGATIVE (< 200 ng/mL); Cocaine Urine NEGATIVE (< 300 ng/mL); Fentanyl, Urine NEGATIVE; Methadone Urine NEGATIVE (< 300 ng/mL); Opiates Urine NEGATIVE (< 300 ng/mL); Oxycodone, Urine NEGATIVE (< 100 ng/mL); PCP Urine NEGATIVE (< 25 ng/mL); THC Urine NEGATIVE (< 50 ng/mL)
[2024-07-02 23:14] LABS: Urine Sodium 38 mmol/L (Not Establ.)
[2024-07-02 23:30] LABS: Protein:Creat Ratio 1236 mg/g CRE (0-200)
[2024-07-03] VITALS (10 sets, daily range): BP systolic 110–131; BP diastolic 76–88; PULSE 86–105; RESP 16–20; TEMP 36.8–37.2; O2SAT 93–98; BMI 34.2
[2024-07-03] MEDS: hydrALAZINE 50 MG Tablet 75 MG PO (04:12)
[2024-07-03 06:22] LABS: Hematocrit 29.8 % (37-47); Hemoglobin 9.7 g/dL (12.0-15.0); Mean Corp Hgb Conc 32.6 g/dL (32-36); Mean Corpuscular Hgb 27.9 pg (27.0-32.0); Mean Corpuscular Volume 85.6 fL (81-99); Mean Platelet Vol. 9.8 fl (6.2-12.0); Platelet Count 302 K/mm3 (150-450); Red Blood Count 3.48 M/mm3 (4.2-5.4); White Blood Count 15.5 K/mm3 (4.4-11.0)
[2024-07-03 07:05] LABS: Anion Gap 12 (5-15); BUN 30 mg/dL (4-19); BUN/Creat Ratio 11.5 RATIO (10-20); Calcium,Total 9.3 mg/dL (7.6-11.0); Carbon Dioxide 19.2 mmol/L (21.0-32.0); Chloride 105 mmol/L (98-108); Creatinine, Serum 2.58 mg/dL (0.70-1.20); EST Glomerular Filtration Rate 24 (>60); Glucose 123 mg/dL (70-99); Potassium 3.7 mmol/L (3.3-5.1); Sodium Level 136 mmol/L (133-145)
[2024-07-03] MEDS: Ipratropium/Albuterol Sulfate 3 ML AMPUL.NEB INHALATION ×3 (07:19→15:23)
[2024-07-03 07:52] LABS: FOLATES,SERUM (FOLIC ACID) 6.42 ng/mL (4.60-34.80)
[2024-07-03] MEDS: Carvedilol 25 MG Tablet PO ×2 (08:55→17:09)
[2024-07-03] MEDS: Oseltamivir Phosphate 30 MG Capsule PO (08:55)
[2024-07-03] MEDS: Isosorbide Mononitrate 30 MG Tablet PO (08:57)
[2024-07-03] MEDS: NIFEdipine 60 MG Tablet PO (08:58)
[2024-07-03] MEDS: Lactated Ringers 1,000 ML 250 ML IV (09:08)
[2024-07-03] MEDS: Heparin Injection (Vial) 5,000 UNIT/ML VIAL 5000 UNIT SC ×2 (09:09→21:06)
--- NOTE | 2024-07-03 09:36 | PN.HOSP_ITS ---
Reason for Visit Reason for Visit: Diagnoses Influenza due to other identified influenza virus with other respiratory manifestations (07/01/24) Pneumonia, unspecified organism (07/01/24) Subjective Subjective Saw patient at bedside this morning. Patient had better energy level this morning compared yesterday. Stated she generally felt improved today, had improvement in cough and upper respiratory symptoms. Denied any fevers or chills. No other acute concerns today. Objective Data Objective Data Vital Signs: Vital Signs Temp Pulse Resp BP Pulse Ox O2 Del Method O2 Flow Rate 98.3 F 105 H 18 127/88 H 98 Room Air 2 07/03/24 08:52 07/03/24 08:52 07/03/24 08:52 07/03/24 08:52 07/03/24 08:52 07/03/24 08:52 07/01/24 21:42 Oxygen Flow Rate (L/min) 2 Oxygen Delivery Method Room Air Weight: 79.5 kg Body Mass Index (BMI) 34.2 Intake & Output: Intake and Output for Last 24 Hours 07/01/24 07/02/24 07/03/24 23:59 23:59 23:59 Intake Total 0 / 0 3911.08 / 3911.08 240 / 240 Balance 0 / 0 3911.08 / 3911.08 240 / 240 Lab / Micro Data 07/03/24 05:54 07/03/24 05:54 Labs: Laboratory Results - last 24 hr 07/02/24 02:35: TIBC 218 L, Iron Saturation 11.9 L, Triglycerides 91, C holesterol 261 H, LDL Cholesterol, Calc 213, VLDL Cholesterol 18, HDL Cholesterol 30 L, Cholesterol/HDL Ratio 8.67 07/02/24 22:17: U Random Total Protein 183.0 H, Ur Random Sodium 38, Urine Creatinine 148.00, Protein/Creatinin Ratio 1236 H, Urine Opiates Screen NEGATIVE, U Buprenorphine Qual NEGATIVE, Ur Oxycodone Screen NEGATIVE, Urine Methadone Screen NEGATIVE, Urine Fentanyl Screen NEGATIVE, Ur Barbiturates Screen NEGATIVE, Ur Phencyclidine Scrn NEGATIVE, Ur Amphetamines Screen NEGATIVE, U Benzodiazepines Scrn NEGATIVE, Urine Cocaine Screen NEGATIVE, U Cannabinoids Screen NEGATIVE 07/03/24 05:54: WBC 15.5 H, RBC 3.48 L, Hgb 9.7 L, Hct 29.8 L, MCV 85.6, MCH 27.9, MCHC 32.6, RDW Std Deviation 47.0 H, RDW Coeff of Rae 15.0 H, Plt Count 302, MPV 9.8, Sodium 136, Potassium 3.7, Chloride 105, Carbon Dioxide 19.2 L, Anion Gap 12, BUN 30 H, Creatinine 2.58 H, Estim Creat Clear Calc 28.40 L, Est GFR (MDRD) Non-Af 24 L, BUN/Creatinine Ratio 11.5, Glucose 123 H, Calcium 9.3 07/03/24 05:59: Serum Folate 6.42 Micro: Microbiology 07/02/24 05:45 Sputum, Expectorated/Coughed Gram Stain - Final 07/02/24 05:45 Sputum, Expectorated/Coughed Respiratory Culture - Preliminary Appears to be normal respiratory shaun. Further studies to follow. 07/02/24 05:45 Mucosa - Nasopharyngeal Respiratory Panel (PCR) - Final Influenzae B 07/02/24 05:45 Nasal Secretion MRSA (PCR) - Final 07/01/24 22:19 Mucosa - Nose SARS-CoV-2, Influenza & RSV (PCR) - Final Radiography Diagnostic Testing: Radiology Impression Venous Doppler Study 07/02/24 00:00 Interpretation Summary Deep veins of the lower extremities are bilaterally patent and compressible segmentally. There is no evidence of deep vein thrombosis on either side. Valvular competence appears intact within the proximal deep venous systems bilaterally. The great saphenous veins appear bilaterally patent and compressible segmentally. Ordering Physician: Mei Castro Performed By: Irina Chong RVT Echocardiogram 07/02/24 00:33 Interpretation Summary Mildly dilated LV systolic The estimated ejection fraction is 45-50 %. Mild LV systolic dysfunction with mild global LV hypokinesia Ordering Physician: Mei Castro Referring Physician: FLORENCE PCP Performed By: Sravani Nascimento RCS Lung Scan-VQ NM 07/02/24 05:55 IMPRESSION: LOW PROBABILITY OF ACUTE PULMONARY EMBOLISM. Mild cardiomegaly. Reading Location: [facility] Renal Ultrasound 07/02/24 08:26 IMPRESSION: Tiny nonobstructing right renal calculi. No hydronephrosis. Reading Location: [facility] Chest X-Ray 07/02/24 10:45 IMPRESSION: Poor inspiration with some bibasilar atelectasis. Reading Location: [facility] Physical Exam Const alert, oriented x3 and no apparent distress Constitutional Narrative: Younger female, class I obesity, energy improved from admission but somewhat anxious today, otherwise laying back comfortably in bed, conversing normally, in no acute distress. General Appearance: cooperative and comfortable HEENT normocephalic, head/scalp atraumatic, hearing grossly normal bilaterally, nasal mucous membranes and turbinates normal and moist oral mucous membranes Eyes PERRL, EOMs intact bilaterally and conjunctivae normal Neck full ROM Chest inspection of chest normal Resp normal respiratory effort and no use of accessory muscles Resp Narrative: Breathing comfortably on room air at rest. Mildly decreased breath sounds in bilateral lung bases but no wheezing or crackles noted. Stable. Cardio no murmurs and peripheral pulses 2+ throughout Cardio Narrative: Tachycardic, regular rhythm. GI normal to inspection, nondistended, normoactive bowel sounds, soft to palpation, non-tender and non-distended Back/Spine normal ROM Extremity normal to inspection, full ROM and no pedal edema Skin no rashes or lesions noted Psych mental status grossly normal Assessment & Plan Assessment/Plan (1) Influenza B: PLAN: Plan Patient is a 34-year-old female who presented to [facility] ED on 07/01/2024 with shortness of breath and URI symptoms. 1. Influenza B infection with hypoxia, improving ? Presented with worsening shortness of breath and URI symptoms. Influenza B positive. Chest x-ray with bilateral interstitial thickening in mid to lower lung zones suggestive of viral infection. Requiring 2 L nasal cannula on admit to maintain appropriate oxygen saturations. Weaned to room air at rest by hospital day 2. There was initially concern for PE given elevated D-dimer and hypoxia but VQ scan was normal. Treating with Tamiflu and other medications for symptomatic management for now. Monitor. 2. Poorly controlled hypertension ? BP high to the 200s over 130s in the ED. Given IV antihypertensive with improvement to the 170s over 90s but unable to improve further than that. Restarted new home medications of Coreg, Imdur, nifedipine and hydralazine with improvement to the 150s to 160s over 100s. Suspect worsened hypertension is primarily due to flu infection as well as underlying kidney disease. Made slight changes to home regimen with improvement, continue these medications. Renal duplex ultrasound ordered to evaluate arteries and this will be done tomorrow, follow-up on result. 3. Suspected CKD stage IIIb ? Creatinine 2.39 on admit here. On review of outside records, creatinine was 2.7 on discharge from [facility] earlier this month. Had fairly elevated protein to creatinine ratio noted during that hospitalization. Renal ultrasound did show normal renal sizes with no parenchymal abnormalities. Appeared dry on this admission and was given 1 L of IV fluids, and creatinine remained stable. Creatinine slightly worsened to 2.6 on 07/03 and patient with continued mild tachycardia so given another 1 L of IV fluids. Continue to monitor BMP and urine output daily. No inpatient nephrology needs at this time but will need close outpatient follow-up. 4. Chronic HFrEF ? Diagnosed with new onset HFrEF during recent hospitalization at [facility]. Echo showed EF 30 to 35%. Unable to review those images. Repeat echo on this admission showed EF 40 to 45%, moderately dilated LV, no other abnormalities. BNP 29847, suspect this was primarily due to poorly controlled hypertension. Appeared dry on admit presumed due to flu infection and was given 1 L of IV fluids. Remained slightly dry appearing so give another 1 L of fluids on 5/4 as noted above. Continue medication management as above. No inpatient cardiology needs, will need outpatient follow-up on discharge. 5. Mild normocytic anemia ? Hemoglobin 11.1 on admit, decreased to 10.0 on hospital day 2 after IV fluid resuscitation. Iron studies with mild iron deficiency noted, ferritin 135. Suspect multifactorial from iron deficiency and chronic kidney disease as noted above. Will start p.o. iron supplement. Monitor CBC daily. 6. Hyperlipidemia ? Lipid panel on admit with total cholesterol 261, LDL 213, HDL 30. Will start patient on high intensity atorvastatin at this time. Recommend repeat lipid panel in 8 to 12 weeks. 7. Polysubstance abuse ? Case management following. Patient with history of methamphetamine abuse. Has reportedly now been sober for the last 30 days and living at 180. Urine drug screen ordered on admit for confirmation. Encouraged continued cessation. 8. Tobacco abuse ? Denied need for NRT while inpatient. Encouraged cessation. 9. Class I obesity ? BMI 33 on admit. Encouraged weight loss. DVT prophylaxis: Heparin subcu CODE STATUS: Full code, verified Expected disposition: Back to 180, 1 to 2 days Total clinical time spent by myself addressing the patient's medical issues, reviewing all the data, and collaborating with patient's care team: 35 minutes. Charges/Coding Visit Charges Inpatient E&M: 56984 Subs Hosp L2
[2024-07-03] MEDS: hydrALAZINE 50 MG Tablet 100 MG PO ×2 (14:45→21:06)
[2024-07-03] MEDS: Mag Hydrox/Al Hydrox/Simeth 30 ML UDC PO (19:43)
[2024-07-03] MEDS: 0.9% Saline Lock 10 ML Syringe IV (21:05)
[2024-07-03] MEDS: Atorvastatin Calcium 80 MG Tablet PO (21:06)
[2024-07-04] VITALS (8 sets, daily range): BP systolic 110–127; BP diastolic 71–86; PULSE 91–99; RESP 16–18; TEMP 36.6–37.4; O2SAT 93–97; BMI 34.9
--- NOTE | 2024-07-04 02:10 | EKG12_ITS ---
Test Reason : CP Blood Pressure : */* mmHG Vent. Rate : 93 BPM Atrial Rate : 93 BPM P-R Int : 120 ms QRS Dur : 98 ms QT Int : 378 ms P-R-T Axes : 70 14 169 degrees QTcB Int : 469 ms Normal sinus rhythm Possible Left atrial enlargement Minimal voltage criteria for LVH, may be normal variant ( Luis product ) ST & T wave abnormality, consider lateral ischemia Prolonged QT Abnormal ECG When compared with ECG of 01-Jul-2024 22:26, MANUAL COMPARISON REQUIRED DATA IS UNCONFIRMED Confirmed by Júnior Pa ([id number]), editor city ORTEGA SANCHEZ ([id number]) on 07/11/2024 11:56:04 AM Referred By: BARB Confirmed By: Júnior Pa
[2024-07-04] MEDS: hydrOXYzine PAM 25 MG Capsule PO (02:49)
[2024-07-04] MEDS: hydrALAZINE 50 MG Tablet 100 MG PO ×2 (05:27→14:28)
[2024-07-04 06:01] LABS: Hematocrit 28.8 % (37-47); Hemoglobin 9.2 g/dL (12.0-15.0); Mean Corp Hgb Conc 31.9 g/dL (32-36); Mean Corpuscular Hgb 27.8 pg (27.0-32.0); Mean Platelet Vol. 10.2 fl (6.2-12.0); Platelet Count 299 K/mm3 (150-450); RBC Distribution Width CV 15.2 % (11.6-14.6); RBC Distribution Width SD 48.2 fl (35.1-43.9); Red Blood Count 3.31 M/mm3 (4.2-5.4); White Blood Count 12.4 K/mm3 (4.4-11.0)
[2024-07-04 06:58] LABS: Anion Gap 13 (5-15); BUN 33 mg/dL (4-19); BUN/Creat Ratio 12.3 RATIO (10-20); Carbon Dioxide 18.6 mmol/L (21.0-32.0); Chloride 104 mmol/L (98-108); Creatinine, Serum 2.65 mg/dL (0.70-1.20); EST Glomerular Filtration Rate 23 (>60); Estimated Creatinine Clearance 27.93 ml/min (50-250); Glucose 106 mg/dL (70-99); Potassium 3.9 mmol/L (3.3-5.1); Sodium Level 136 mmol/L (133-145)
[2024-07-04] MEDS: Heparin Injection (Vial) 5,000 UNIT/ML VIAL 5000 UNIT SC (08:55)
[2024-07-04] MEDS: Carvedilol 25 MG Tablet PO (08:55)
[2024-07-04] MEDS: Isosorbide Mononitrate 30 MG Tablet PO (08:55)
[2024-07-04] MEDS: Oseltamivir Phosphate 30 MG Capsule PO (08:55)
[2024-07-04] MEDS: NIFEdipine 60 MG Tablet PO (08:55)
--- NOTE | 2024-07-04 09:02 | PCM.PN.HOSP ---
Reason for Visit Reason for Visit: Diagnoses Influenza due to other identified influenza virus with other respiratory manifestations (07/01/24) Pneumonia, unspecified organism (07/01/24) Subjective Subjective Feeling well. No new complaints. Objective Data Objective Data Vital Signs: Vital Signs Temp Pulse Resp BP Pulse Ox O2 Del Method O2 Flow Rate 37.2 C 99 16 127/86 H 93 Room Air 2 07/04/24 08:00 07/04/24 08:00 07/04/24 08:00 07/04/24 08:00 07/04/24 08:22 07/04/24 08:22 07/01/24 21:42 Oxygen Flow Rate (L/min) 2 Oxygen Delivery Method Room Air Weight: 81 kg Body Mass Index (BMI) 34.9 Intake & Output: Intake and Output for Last 24 Hours 07/02/24 07/03/24 07/04/24 23:59 23:59 23:59 Intake Total 3911.08 / 3911.08 1480 / 1480 Balance 3911.08 / 3911.08 1480 / 1480 Lab / Micro Data 07/04/24 05:25 07/04/24 05:25 Labs: Laboratory Results - last 24 hr 07/04/24 05:25: WBC 12.4 H, RBC 3.31 L, Hgb 9.2 L, Hct 28.8 L, MCV 87.0, MCH 27.8, MCHC 31.9 L, RDW Std Deviation 48.2 H, RDW Coeff of Rae 15.2 H, Plt Count 299, MPV 10.2, Sodium 136, Potassium 3.9, Chloride 104, Carbon Dioxide 18.6 L, Anion Gap 13, BUN 33 H, Creatinine 2.65 H, Estim Creat Clear Calc 27.93 L, Est GFR (MDRD) Non-Af 23 L, BUN/Creatinine Ratio 12.3, Glucose 106 H, Calcium 9.0 Micro: Microbiology 07/02/24 00:55 Blood Culture (Wb) - Anticubital Left Blood Culture - Preliminary No growth in 48 hours. 07/02/24 22:17 Urine, Clean Catch Streptococcus pneumoniae Antigen (M - Final 07/02/24 05:45 Sputum, Expectorated/Coughed Gram Stain - Final 07/02/24 05:45 Sputum, Expectorated/Coughed Respiratory Culture - Preliminary Appears to be normal respiratory shaun. Further studies to follow. 07/02/24 05:45 Mucosa - Nasopharyngeal Respiratory Panel (PCR) - Final Influenzae B 07/02/24 05:45 Nasal Secretion MRSA (PCR) - Final 07/01/24 22:19 Mucosa - Nose SARS-CoV-2, Influenza & RSV (PCR) - Final Physical Exam Const alert and no apparent distress HEENT head/scalp atraumatic and moist oral mucous membranes Resp normal respiratory effort, no retractions, no use of accessory muscles and clear to auscultation bilaterally Cardio regular rate, regular rhythm, S1 normal heart sound and S2 normal heart sound GI normal to inspection, nondistended, normoactive bowel sounds, soft to palpation and non-tender Assessment & Plan Assessment/Plan (1) Influenza B: PLAN: oseltamivir VQ negative. (2) Hypertensive urgency: PLAN: resolved on carvedilol 25 BID,hydralazine 100 TID, isosorbide 20/d, nifedipine 60/d PLAN: Plan hyperlipidemia: statin DC home.
--- NOTE | 2024-07-04 13:58 | PCM.DC.SUM ---
Providers Date of Admission: 07/01/24 Primary Care Physician: Marybel Primary Care Phys Reason For Visit: HYPOXIA, PNA, JACKIE, INDETERM TROP, ELEVATED DIMER Diagnosis Discharge Diagnosis (1) Influenza B: Status: Acute Code(s): J10.1 - Influenza due to other identified influenza virus with other respiratory manifestations Plan: oseltamivir VQ negative. (2) Hypertensive urgency: Status: Acute Code(s): I16.0 - Hypertensive urgency Plan: resolved on carvedilol 25 BID,hydralazine 100 TID, isosorbide 20/d, nifedipine 60/d Plan hyperlipidemia: statin DC home. Medications at Discharge Home Medications atorvastatin 20 mg tablet 20 mg PO QHS #30 tabs 07/04/24 carvedilol 25 mg tablet 25 mg PO BIDCM #60 tabs 07/04/24 isosorbide mononitrate 30 mg tablet,extended release 24 hr 30 mg PO DAILY #30 tabs 07/04/24 nifedipine 60 mg tablet,extended release 24 hr 60 mg PO DAILY #30 tabs 07/04/24 oseltamivir 30 mg capsule 30 mg PO DAILY #2 caps 07/04/24 Hospital Course Operations None Procedures None Summary of Care Provided Minutes Spent on Discharge: 32 Weight / BMI Weight Weight: 81 kg Body Mass Index (BMI) 34.9 ABG / Lab / Microbiology Data 07/04/24 05:25 07/04/24 05:25 Laboratory: Laboratory Results - last 24 hr 07/04/24 05:25: WBC 12.4 H, RBC 3.31 L, Hgb 9.2 L, Hct 28.8 L, MCV 87.0, MCH 27.8, MCHC 31.9 L, RDW Std Deviation 48.2 H, RDW Coeff of Rae 15.2 H, Plt Count 299, MPV 10.2, Sodium 136, Potassium 3.9, Chloride 104, Carbon Dioxide 18.6 L, Anion Gap 13, BUN 33 H, Creatinine 2.65 H, Estim Creat Clear Calc 27.93 L, Est GFR (MDRD) Non-Af 23 L, BUN/Creatinine Ratio 12.3, Glucose 106 H, Calcium 9.0 Microbiology: Microbiology 07/02/24 01:02 Blood Culture (Wb) - Left Hand Blood Culture - Preliminary No growth in 48 hours. 07/02/24 05:45 Sputum, Expectorated/Coughed Gram Stain - Final 07/02/24 05:45 Sputum, Expectorated/Coughed Respiratory Culture - Preliminary Appears to be normal respiratory shaun. Further studies to follow. 07/02/24 00:55 Blood Culture (Wb) - Anticubital Left Blood Culture - Preliminary No growth in 48 hours. 07/02/24 22:17 Urine, Clean Catch Streptococcus pneumoniae Antigen (M - Final 07/02/24 05:45 Mucosa - Nasopharyngeal Respiratory Panel (PCR) - Final Influenzae B 07/02/24 05:45 Nasal Secretion MRSA (PCR) - Final 07/01/24 22:19 Mucosa - Nose SARS-CoV-2, Influenza & RSV (PCR) - Final Radiography Diagnostic Testing: Radiology Impression Renal Artery Duplex 07/02/24 08:23 Interpretation Summary Right renal artery patent with normal velocities and no evidence of stenosis. Left renal artery patent with normal velocities and no evidence of stenosis. Right renal vein patent. Left renal vein patent. Right kidney normal in size. Left kidney normal in size. Ordering Physician: Jordi Benitez Referring Physician: N/A Performed By: Ignacio Oliveira RVT D/C Instructions Discharge Diet: No restrictions DC O2, CPAP, BIPAP Needs Home O2 Discharge instructions: No Meaningful Use Info Meaningful Use Meaningful Use Diagnoses (Choose all that apply): None applicable Ischemic Stroke Statin Dosing Therapy Reference: STATIN DOSE THERAPY REFERENCE: * Patients > 75 years receive moderate or high dose statin therapy. * Patients 75 years or YOUNGER should receive HIGH intensity statin dose unless contraindicated. You will be required to document reason for non-treatment if statin daily dose does not meet guidelines. HIGH DOSE STATIN THERAPY DAILY Atorvastatin > than or = to 40 mg Rosuvastatin > than or = to 20 mg Amlodipine + Atorvastatin > than or = to 2.5/40 mg Ezetimibe + Simvastatin 10/80 mg Simvastatin 80mg Discharge Plan Admission Admit Date/Time: 07/01/24 23:52 Primary Reason for Your Visit: Influenza. Hypertension Attending Provider: Harry Tian Primary Care Provider: Care Physician,No Primary Consulting Providers: Mei Castro; Jordi Benitez Instructions Additional Instructions / Restrictions: You had influenza. Take the Tamiflu for 2 more doses. Your blood pressure was very high and you required additional medications to help control your blood pressure. Discharge Orders/Prescriptions Prescriptions: New carvedilol 25 mg Tablet 25 mg PO BIDCM Qty: 60 0RF atorvastatin 20 mg Tablet 20 mg PO QHS Qty: 30 0RF isosorbide mononitrate 30 mg Tablet Extended Release 24 Hr 30 mg PO DAILY Qty: 30 0RF nifedipine 60 mg Tablet Extended Release 24hr 60 mg PO DAILY Qty: 30 0RF oseltamivir 30 mg Capsule 30 mg PO DAILY Qty: 2 0RF Discontinued carvedilol [Coreg] 3 tab PO DAILY Referrals / Follow Up: [facility] [Provider Group] - Within 2 Weeks Care Physician,No Primary [Primary Care Provider] - Disposition Disposition (needs filled in before D/C Order can be placed): Home, Self Care Charges/Coding Visit Charges Inpatient E&M: 65441 Disch Hosp >30min
--- NOTE | 2024-07-04 14:40 | CASEMGMT ---
Patient has order for discharge. RN CM in to discuss needs at discharge. Patient denies needs or help at discharge and plans to return to [facility]. Patient calling [facility] for transport home. Patient had no furhter questions or concerns.
== END 2024-07-04 15:04 | disposition home or self-care (01) | DRG 139 ==
LOC: ED 22:57 → PCU 07-02 00:08
PROVIDERS: Hospitalist; Admitting Provider Family Medicine; Emergency Provider Surgery
DX: J10.00 Influenza due to other identified influenza virus with unspecified type of pneumonia (principal); I16.0 Hypertensive urgency; I13.0 Hypertensive heart and chronic kidney disease with heart failure and stage 1 through stage 4 chronic kidney disease, or unspecified chronic kidney disease; I50.22 Chronic systolic (congestive) heart failure; N18.32 Chronic kidney disease, stage 3b; D64.9 Anemia, unspecified; E66.811 Obesity, class 1; F15.90 Other stimulant use, unspecified, uncomplicated; E78.5 Hyperlipidemia, unspecified; F17.210 Nicotine dependence, cigarettes, uncomplicated; E61.1 Iron deficiency; Z11.52 Encounter for screening for COVID-19; R09.02 Hypoxemia; Z68.33 Body mass index [BMI] 33.0-33.9, adult; R79.89 Other specified abnormal findings of blood chemistry
CPT/HCPCS: 36415; 71046; 76770; 78582; 80048; 80053; 80061; 80307; 82570; 82607; 82728; 82746; 83540; 83550; 83605; 83735; 83880; 84100; 84145; 84156; 84300; 84443; 84484; 84703; 85025; 85027; 85379; 85610; 85730; 86703; 86706; 86780; 86803; 87040; 87070; 87077; 87186; 87205; 87340; 87449; 87631; 87633; 87641; 93005; 93306; 93970; 93975; 94640; 94668; 99252; 99285; A9540; A9567; A4216; G0463

== ENCOUNTER → 2024-07-07 | Outpatient (CLI) | payer MEDICAID, SELFPAY ==
[2024-07-07 16:54] LABS: Absolute Lymphocyte Count 1.64 X10^3/uL (0.83-4.51); Absolute Neutrophil Count 11.2 X10^3/uL (2.0-7.7); Basophil# 0.09 X10^3/uL; Basophil% 0.6 % (0-1); Eosinophil# 0.09 X10^3/uL; Eosinophils% 0.6 % (0-5); Hematocrit 32.7 % (37-47); Hemoglobin 10.4 g/dL (12.0-15.0); Lymphocyte # 1.64 X10^3/ul (0.83-4.51); Lymphocyte % 11.7 % (19-41); Mean Corp Hgb Conc 31.8 g/dL (32-36); Mean Corpuscular Hgb 27.5 pg (27.0-32.0); Mean Corpuscular Volume 86.5 fL (81-99); Mean Platelet Vol. 9.7 fl (6.2-12.0); Monocyte% 6.4 % (0-10); NRBC Flagged by Analyzer 0 % (0-5); Neutrophil # 11.19 X10^3/uL (2.7-7.7); Neutrophil % 80.1 % (47-70); Platelet Count 414 K/mm3 (150-450); RBC Distribution Width CV 14.5 % (11.6-14.6); RBC Distribution Width SD 45.9 fl (35.1-43.9); Red Blood Count 3.78 M/mm3 (4.2-5.4)
[2024-07-07 17:35] LABS: ALB/GLOB Ratio 0.8 RATIO (0.9-2.4); AST(SGOT) 22 U/L (<=31); Alanine Aminotransfer ALT/SGPT 11 U/L (<=34); Albumin, Serum 3.4 g/dL (3.5-5.0); Alkaline Phosphatase 115 U/L (35-104); Anion Gap 15 (5-15); BUN 31 mg/dL (4-19); BUN/Creat Ratio 12.5 RATIO (10-20); Calcium,Total 8.8 mg/dL (7.6-11.0); Carbon Dioxide 18.2 mmol/L (21.0-32.0); Chloride 103 mmol/L (98-108); Creatinine, Serum 2.51 mg/dL (0.70-1.20); EST Glomerular Filtration Rate 25 (>60); Globulin 4.3 g/dL (2.2-4.2); Glucose 78 mg/dL (70-99); Protein, Total 7.7 g/dL (5.9-8.4); Sodium Level 137 mmol/L (133-145)
== END | disposition home or self-care (01) ==
LOC: VSLAB 14:11
DX: I10 Essential (primary) hypertension (principal); N17.9 Acute kidney failure, unspecified
CPT/HCPCS: 36415; 80053; 85025

== ENCOUNTER 2024-07-08 21:32 | Emergency (ER) | payer MEDICAID, SELFPAY ==
[2024-07-08 21:32] VITALS: BP 182/112; PULSE 93; RESP 17; TEMP 36.1; O2SAT 100; BMI 33.2
--- NOTE | 2024-07-08 21:42 | EDS_ITS ---
HPI History of Present Illness Chief Complaint: Hypertension [facility] Medical History Obesity Polysubstance abuse Tobacco use Methamphetamine use Hypertension Home Medications ?Medication ?Instructions ?Recorded ?Last Taken ?Type atorvastatin 20 mg tablet 20 mg PO QHS #30 tabs Unknown Rx carvedilol 25 mg tablet 25 mg PO BIDCM #60 tabs 07/24 Unknown Rx isosorbide mononitrate 30 mg 30 mg PO DAILY #30 tabs 0 07/04/24 Unknown Rx tablet,extended release 24 hr nifedipine 60 mg tablet,extended 60 mg PO DAILY #30 ta bs 07/04/24 Unknown Rx release 24 hr oseltamivir 30 mg capsule 30 mg PO DAILY #2 caps 07/04 Unknown Rx isosorbide mononitrate 30 mg 30 mg PO DAILY 30 days #3 0 tabs 07/08/24 Unknown Rx tablet,extended release 24 hr Allergy/AdvReac Type Severity Reaction Status Date / Time No Known Allergies Allergy Verified 07/08/24 21:32 Family History Mother Diabetes Hypertension Father Diabetes Hypertension Surgical History H/O wisdom tooth extraction Social History household members: other details: Currently living at [facility]. Smoking Status: Current every day smoker tobacco type: cigarettes alcohol intake: never substance use type: former substance user Date of last use: Primarily reporting history methamphetamine usage. EXAM Physical Exam Const Vital Signs: 07/08/24 21:32 07/08/24 21:55 07/08/24 21:56 Temperature 97 F L Temperature Source Temporal Pulse Rate 93 91 Respiratory Rate 17 Respiratory Effort Normal Non-Labored Respiratory Pattern Normal Blood Pressure 182/112 H 154/99 H Blood Pressure Mean 135 117 Pulse Ox 100 99 Oxygen Delivery Method Room Air Room Air 07/08/24 23:14 Temperature Temperature Source Pulse Rate 79 Respiratory Rate 22 H Respiratory Effort Respiratory Pattern Blood Pressure 138/96 H Blood Pressure Mean 110 Pulse Ox 91 Oxygen Delivery Method Room Air MDM MDM MDM Narrative Medical decision making narrative: HISTORY OF PRESENT ILLNESS: Chief complaint: Hypertension 34-year-old female history of hypertension (on carvedilol, isosorbide mononitrate, nifedipine), CKD, methamphetamine and cocaine abuse presents concern for hypertension. Notes she is supposed to be on isosorbide mononitrate but states she has not been able to fill this prescription. 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 Denies take nighttime dose of carvedilol. Denies any symptoms such as headache, shortness of breath, chest pain, abdominal pain, focal weakness. Patient denies any alcohol illicit drug use. REVIEW OF SYSTEMS: Pertinent positives: Elevated blood pressure Pertinent negatives: As per HPI PHYSICAL EXAM: Nursing triage notes reviewed, Vital signs reviewed Constitutional: please see [facility] HENT: MMM Eyes: Pupils equal round and reactive to light, Extraocular muscles intact Neck: No stridor, no JVD, full neck ROM Lungs: Clear to auscultation, No wheezing or rales. No increased work of breathing, no conversational dyspnea, no accessory muscle use, no nasal flaring. No respiratory distress noted Heart: Regular rate and rhythm, No murmurs, No rubs and No gallops, 2+ distal pulses (radial, femoral, posterior tibial) in all extremities Abdomen: Soft, there is no tenderness, rigidity, rebound or guarding, no obvious peritoneal signs, no palpable pulsatile abdominal masses, no auscultated abdominal bruit : No CVAT Extremities: No edema Neuro: Alert and oriented x3, neuro exam at baseline, cranial nerves II through XII are intact. No pain with extraocular muscle movement. There is negative test of skew. 5 of 5 strength in upper and lower extremities in flexion extension. Intact sensation to light touch in upper and lower extremity dermatomes. No truncal or extremity ataxia. No dysdiadochokinesia. Normal gait. 2+ reflexes in upper and lower extremities. No meningeal signs. Negative Babinski. NIH of 0. Skin: No rash or lesions noted MEDICAL DECISION MAKING: Chief Complaint: please see HPI External records reviewed: Reviewed prior encounters, prior imaging studies Factors affecting care: Hypertension, obesity Social determinants of health: Polysubstance abuse, methamphetamine abuse History obtained from others: none Consults: none [facility] Narrative: The patient was initially hypertensive with blood pressure 180/112 otherwise afebrile nontoxic-appearing saturating 100% room air. Exam without focal deficits. Abdomen soft nontender no pulsatile masses. Initially gave the patient her home prescribed blood pressure medicine in the form of oral carvedilol as well as isosorbide mononitrate. I considered the following differential diagnosis: ICH, endorgan damage from elevated blood pressure including renal damage I considered obtaining a troponin value however the patient no chest pain to suggest ACS and dizziness her EKG was nonischemic ALL IMAGES (IF OBTAINED) HAVE BEEN PERSONALLY REVIEWED AND INTERPRETED BY MYSELF. CBC with leukocytosis consistent with prior studies, mild anemia but no thrombocytopenia noted I have personally reviewed the patient's chest x-ray. Chest x-ray is unremarkable for pulmonary edema, pneumothorax, pneumonia or focal cardiopulmonary abnormality. EKG with normal sinus rhythm rate of 88, left axis deviation, normal intervals, no STEMI BMP with improving CKD otherwise no significant electrolyte abnormality On re-evaluation the patient's blood pressure improved to 138/96. She had no focal neurologic deficits. She had no complaints. She is appropriate discharge home as there is no sign of end-organ damage from elevated blood pressure or hypertensive emergency. She likely needs to take her home medication as prescribed to prevent blood pressure from elevating in the future. The patient and/or family, caregivers express understanding. The patient and/or family, caregivers agrees with the plan. Shared decision making: I will have a discussion with the patient and or visitors regarding risk/benefits of further testing or admission. They will be made aware of of the risk/benefits inherent in this decision they will be given the opportunity to voice understanding. Total critical care time today provided was at least 0 minutes. This excludes separately billable procedures. Critical care time (if documented) is secondary to the patient having high probability of clinically significant/life threatening deterioration in the patient's condition which required my urgent intervention. Impression: 1. Poorly controlled hypertension 2. Hypertension 3. CKD 4. Med noncompliance Dispo: Discharge home This note was generated with [employer] dictation software. It may contain incorrect words, spelling, and punctuation that were not noted in review of the chart prior to signing. Lab Data Labs: Laboratory Results - last 24 hr 07/08/24 21:50 WBC 13.8 H RBC 3.81 L Hgb 10.5 L Hct 32.3 L MCV 84.8 MCH 27.6 MCHC 32.5 RDW Std Deviation 43.8 RDW Coeff of Rae 14.2 Plt Count 460 H MPV 9.5 Immature Gran % (Auto) 0.500 Neut % (Auto) 77.5 H Lymph % (Auto) 13.3 L [place] % (Auto) 7.4 Eos % (Auto) 0.8 Baso % (Auto) 0.5 Absolute Neuts (auto) 10.7 H Absolute Lymphs (auto) 1.83 Nucleated RBC % 0 Sodium 139 Potassium 4.1 Chloride 104 Carbon Dioxide 20.4 L Anion Gap 15 BUN 28 H Creatinine 2.19 H Estim Creat Clear Calc 32.91 L Est GFR (MDRD) Non-Af 29 L BUN/Creatinine Ratio 12.7 Glucose 106 H Calcium 9.3 Radiography Diagnostic Testing: Clinical Impression(s) from Imaging Studies Chest X-Ray 07/08/24 21:55 IMPRESSION: No Acute Findings. Reading Location: [facility] Discharge Plan Triage Chief Complaint: Hypertension ED Provider: Erik Berger Dx/Rx/DC Orders Instructions: ED High Blood Pressure Hypertension Prescriptions: New isosorbide mononitrate 30 mg tablet extended release 24 hr 30 mg PO DAILY 30 Days Qty: 30 3RF No Action carvedilol 25 mg Tablet 25 mg PO BIDCM Qty: 60 0RF atorvastatin 20 mg Tablet 20 mg PO QHS Qty: 30 0RF isosorbide mononitrate 30 mg Tablet Extended Release 24 Hr 30 mg PO DAILY Qty: 30 0RF nifedipine 60 mg Tablet Extended Release 24hr 60 mg PO DAILY Qty: 30 0RF oseltamivir 30 mg Capsule 30 mg PO DAILY Qty: 2 0RF Primary Care Provider: Chago Nguyen Referrals: Chago Nguyen, INSURANCE CLAIM REPRESENTATIVE-[facility] [Primary Care Provider] - Activity Restrictions/Additional Instructions: Thank you for trusting us with your care today! Your labs images were reassuring. No sign of damage or end-organ elevated blood pressure Please take home blood pressure medicine (carvedilol 12 5 mg twice a day, isosorbide mononitrate 30 mg daily, and nifedipine 60 mg daily) Please return to the emergency department if your symptoms change or worsen. Please follow with your primary care physician for further outpatient evaluation and management. Print Language: Armenian Disposition Disposition: Home, Self Care
--- NOTE | 2024-07-08 21:55 | RAD_ITS ---
PROCEDURE: CHEST 1 VIEW (PORTABLE) 07/08/2024 REASON FOR EXAM: HYPERTENSION TECHNIQUE: Frontal view of the chest. COMPARISON: 07/29/2024 FINDINGS: Hardware: None Heart: The heart size is normal. Lungs: Mild bibasilar atelectasis. No focal consolidation. No pneumothorax. No pleural effusion. Bones: The bones are unremarkable. Other: RAD/Chest 1 View (Portable) IMPRESSION: No Acute Findings. Reading Location: [id number]
[2024-07-08 21:56] VITALS: BP 154/99; PULSE 91; O2SAT 99
[2024-07-08] MEDS: Isosorbide Mononitrate 30 MG Tablet PO (22:01)
[2024-07-08] MEDS: Carvedilol 25 MG Tablet PO (22:01)
[2024-07-08 22:12] LABS: Absolute Lymphocyte Count 1.83 X10^3/uL (0.83-4.51); Absolute Neutrophil Count 10.7 X10^3/uL (2.0-7.7); Basophil# 0.07 X10^3/uL; Basophil% 0.5 % (0-1); Eosinophil# 0.11 X10^3/uL; Eosinophils% 0.8 % (0-5); Hematocrit 32.3 % (37-47); Hemoglobin 10.5 g/dL (12.0-15.0); Lymphocyte # 1.83 X10^3/ul (0.83-4.51); Lymphocyte % 13.3 % (19-41); Mean Corp Hgb Conc 32.5 g/dL (32-36); Mean Corpuscular Hgb 27.6 pg (27.0-32.0); Mean Corpuscular Volume 84.8 fL (81-99); Mean Platelet Vol. 9.5 fl (6.2-12.0); Monocyte# 1.02 X10^3/uL; Monocyte% 7.4 % (0-10); NRBC Flagged by Analyzer 0 % (0-5); Neutrophil # 10.65 X10^3/uL (2.7-7.7); Neutrophil % 77.5 % (47-70); Platelet Count 460 K/mm3 (150-450); RBC Distribution Width CV 14.2 % (11.6-14.6); RBC Distribution Width SD 43.8 fl (35.1-43.9); Red Blood Count 3.81 M/mm3 (4.2-5.4); White Blood Count 13.8 K/mm3 (4.4-11.0)
[2024-07-08 22:20] LABS: Anion Gap 15 (5-15); BUN 28 mg/dL (4-19); BUN/Creat Ratio 12.7 RATIO (10-20); Calcium,Total 9.3 mg/dL (7.6-11.0); Carbon Dioxide 20.4 mmol/L (21.0-32.0); Chloride 104 mmol/L (98-108); Creatinine, Serum 2.19 mg/dL (0.70-1.20); EST Glomerular Filtration Rate 29 (>60); Estimated Creatinine Clearance 32.91 ml/min (50-250); Glucose 106 mg/dL (70-99); Potassium 4.1 mmol/L (3.3-5.1); Sodium Level 139 mmol/L (133-145)
[2024-07-08 23:14] VITALS: BP 138/96; PULSE 79; RESP 22; O2SAT 91
[2024-07-08 23:22] VITALS: BP 138/96; PULSE 79; RESP 22; TEMP 36.1; O2SAT 94
== END 2024-07-08 23:29 | disposition home or self-care (01) ==
PROVIDERS: Emergency Provider Emergency Medicine; Referring Provider Emergency Medicine; Visit Provider Emergency Medicine
DX: I12.9 Hypertensive chronic kidney disease with stage 1 through stage 4 chronic kidney disease, or unspecified chronic kidney disease (principal); E66.9 Obesity, unspecified; N18.9 Chronic kidney disease, unspecified; F17.210 Nicotine dependence, cigarettes, uncomplicated; Z91.148 Patient's other noncompliance with medication regimen for other reason; Z68.33 Body mass index [BMI] 33.0-33.9, adult; Z79.899 Other long term (current) drug therapy
CPT/HCPCS: 71045; 80048; 85025; 93005; 99284; A4216